=== PATIENT | female | born 1990 | race Caucasian/White ===

== ENCOUNTER → 2019-04-25 20:44 | Outpatient (CLI) | payer BC, SELFPAY | PROVIDERS: Family Provider Physician Assistant Medical; PCP Physician Assistant Medical; Visit Provider Physician Assistant | DX: L98.499 Non-pressure chronic ulcer of skin of other sites with unspecified severity (principal) | CPT/HCPCS: 87070; 87075; 87205 ==

== ENCOUNTER → 2019-04-26 15:01 | Outpatient (CLI) | payer BC, SELFPAY ==
[2019-04-26 16:58] LABS: Urine N gonorrhoeae NOT DETECTED
[2019-04-26 17:58] LABS: Urine Chlamydia NOT DETECTED
[2019-04-29 13:24] LABS: HSV 1 IgM Screen Negative (Negative); HSV 2 IgM Screen Negative (Negative)
[2019-04-29 20:16] LABS: RPR Screen Nonreactive (Nonreactive)
== END ==
PROVIDERS: Visit Provider Physician Assistant
DX: L98.499 Non-pressure chronic ulcer of skin of other sites with unspecified severity (principal)
CPT/HCPCS: 36415; 86592; 86695; 86696; 87491; 87591

== ENCOUNTER → 2019-05-01 13:45 | Outpatient (CLI) | payer BC, SELFPAY | PROVIDERS: Visit Provider Family Medicine | DX: S31.109A Unspecified open wound of abdominal wall, unspecified quadrant without penetration into peritoneal cavity, initial encounter (principal); L08.1 Erythrasma | CPT/HCPCS: 99203; 99213 ==

== ENCOUNTER → 2019-05-05 15:16 | Outpatient (CLI) | payer BC, SELFPAY | PROVIDERS: Visit Provider Family Medicine | DX: S31.109A Unspecified open wound of abdominal wall, unspecified quadrant without penetration into peritoneal cavity, initial encounter (principal); L08.1 Erythrasma | CPT/HCPCS: 99213 ==

== ENCOUNTER → 2020-05-16 12:22 | Outpatient (CLI) | payer BC, SELFPAY ==
[2020-05-18 12:18] LABS: COVID19 Sendout Not Detected (Not Detected)
== END ==
PROVIDERS: Visit Provider Physician Assistant
DX: J02.9 Acute pharyngitis, unspecified (principal)
CPT/HCPCS: 87070; 87635

== ENCOUNTER → 2020-06-13 17:14 | Outpatient (CLI) | payer BC, SELFPAY ==
[2020-06-18 20:36] LABS: AFP, Serum 51.5 ng/mL (.); Calc Gestational Age As provided (.); Estriol, Free 3.22 ng/mL (.); Inhibin A, Dimeric 167.35 pg/mL (.); Inhibin A, MoM 1.01 (.); Maternal Ethnicity Caucasian (.); Maternal Weight 210 lbs (.); Number of Fetuses No (.); OSBR Risk 1 IN 9231 (.); Results Report (.); Test Results *Screen Negative* (.); hCG, MoM 1.91 (.); hCG, Serum 37575 mIU/mL (.)
== END ==
PROVIDERS: Referring Provider Obstetrics & Gynecology; Visit Provider Obstetrics & Gynecology
DX: Z34.00 Encounter for supervision of normal first pregnancy, unspecified trimester (principal); Z3A.20 20 weeks gestation of pregnancy
CPT/HCPCS: 36415; 82105; 82677; 84702; 86336

== ENCOUNTER → 2020-06-15 07:39 | Outpatient (CLI) | payer BC, SELFPAY ==
--- NOTE | 2020-06-15 07:40 | DI.US.S_ITS ---
PROCEDURE: US OB >= 14 WEEKS FETUS INDICATIONS: Evaluate anatomy. OUTSIDE/PRIOR DATING DATA: Last menstrual period (LMP): 01/23/2020 . LMP-based estimated date of delivery (SHARON): 10/29/2020 . First dating scan (date and location): 06/15/2020 . Estimated date of delivery (SHARON) from first dating scan: 11/04/2020 . TECHNIQUE: Real-time scanning was performed of the fetus, with image documentation and biometric measurements. Endovaginal scanning: No COMPARISON: None. FINDINGS: General: A single living intrauterine gestation is present. Presentation: Breech. Placenta: Placental position is anterior , without previa. Amniotic fluid index: 14.1 cm, normal range is 5-24 cm. heart rate: 141 beats per minute. Maternal cervical canal: 3.2 cm long. Normal lower limit is 2.5 cm. biometrics: Biparietal diameter: 19 weeks 6 days Head circumference: 19 weeks 6 days Abdominal circumference: 19 weeks 6 days Femur length: 19 weeks 1 day Estimated gestational age from initial scan: not applicable. Composite gestational age from present scan: 19 weeks 5 days Estimated weight and percentile: 301 g; 7 percentile Measurement variability for biometric dating: +/- 7 days from 14 weeks to 15 weeks 6 days gestation, +/- 10 days from 16 weeks to 21 weeks 6 days gestation, +/- 2 weeks from 22 weeks to 27 weeks 6 days gestation, +/- 3 weeks for 28 weeks gestation or later. weight reference: 4500 g or EFW >90/95% is considered macrosomia or large for gestational age. EFW <10% is small for gestational age. EFW 5% or less is considered intra-uterine growth restriction. Anatomic survey: Neuro: Ventricles are non-dilated at less than 10 mm. Cisterna magna is normal at 3-11 mm. Cerebellum is normal in size and morphology. Nuchal skin fold: Normal at less than 6 mm between 14-21 weeks gestational age. Face: Nose and lips, facial profile are normal. Spine: No evidence for spina bifida. Heart: 4-chambered heart is present, with normal ventricular outflow tracts. Diaphragm: Diaphragm is intact. Stomach: Left-sided stomach is present. Kidneys: No hydronephrosis. Normal is less than 5 mm in 2nd trimester, less than 7 mm in 3rd trimester. Cord: 3-vessel cord has orthotopic insertion. Bladder: Normal in size. Extremities: All 4 extremities identified. IMPRESSION: 1. Single living IUP with mean composite gestational age of 19 weeks 5 days corresponding to ultrasound SHARON of 11/04/2020. 2. Normal anatomic survey. Dictated by: Abhishek Charles [facility] Interpreted: Bronwyn Romo MD on 06/15/2020 at 9:33 Approved by: Bronwyn Romo MD, PhD on 06/15/2020 at 13:02
== END ==
PROVIDERS: Referring Provider Obstetrics & Gynecology; Visit Provider Obstetrics & Gynecology
DX: Z36.89 Encounter for other specified antenatal screening (principal); Z3A.19 19 weeks gestation of pregnancy
CPT/HCPCS: 76811

== ENCOUNTER → 2020-08-02 12:27 | Outpatient (CLI) | payer BC, SELFPAY ==
[2020-08-02 14:02] LABS: Hematocrit 31.7 % (36-46)
[2020-08-02 14:12] LABS: GTT (PREG) 1 Hour PP 50gm Dose 90 mg/dL (76-139)
== END ==
PROVIDERS: Referring Provider Obstetrics & Gynecology; Visit Provider Obstetrics & Gynecology
DX: Z34.82 Encounter for supervision of other normal pregnancy, second trimester (principal); Z3A.26 26 weeks gestation of pregnancy
CPT/HCPCS: 36415; 82950; 85014; 85018

== ENCOUNTER 2020-09-15 17:17 | Observation (INO) | payer BC, SELFPAY ==
[2020-09-15 17:57] LABS: Add Manual Diff / Slide Review NO; Basophils Absolute Auto 0 /uL (0-100); Basophils Percent Auto 0.3 % (0-2); Eosinophils Absolute Auto 100 /uL (0-450); Eosinophils Percent Auto 1.1 % (2-4); Hematocrit 29.3 % (36-46); Hemoglobin 9.9 g/dL (12.0-16.0); Lymphocytes Absolute Auto 1500 /uL (1100-4500); Lymphocytes Percent Auto 13.8 % (25-40); Mean Corpuscular HGB Conc 33.8 % (30-36); Mean Corpuscular Hemoglobin 27.5 PG (26-34); Mean Corpuscular Volume 81.4 fL (80-100); Monocytes Absolute Auto 600 /uL (0-900); Monocytes Percent Auto 5.7 % (3-14); Neutrophils Absolute Auto 8600 /uL (1500-7000); Neutrophils Percent Auto 79.1 % (50-75); Platelet Count 195 X10^3/uL (150-400); Red Cell Distribution Width 13.2 % (11.6-14.8); White Blood Cell Count 10.8 X10^3/uL (4.5-11.0)
[2020-09-15 18:13] LABS: Aspartate Aminotransferase 17 IU/L (14-36); BUN Creatinine Ratio 18.4 (6-22); Blood Urea Nitrogen 7 mg/dL (7-17); Estimated Glomerular Filt Rate > 60.0 mL/min (>60); Uric Acid 4.8 mg/dL (2.5-6.2)
== END 2020-09-15 18:30 | disposition home or self-care (01) ==
PROVIDERS: Admitting Provider Obstetrics & Gynecology; PCP Obstetrics & Gynecology; Referring Provider Obstetrics & Gynecology; Visit Provider Obstetrics & Gynecology
DX: O12.03 Gestational edema, third trimester (principal); R51.9 Headache, unspecified; H53.9 Unspecified visual disturbance; Z3A.32 32 weeks gestation of pregnancy
CPT/HCPCS: 36415; 59025; 84450; 84550; 85025; G0378; G0379

== ENCOUNTER → 2020-10-05 15:40 | Outpatient (CLI) | payer BC, SELFPAY ==
[2020-10-06 11:39] LABS: Strep Grp B PCR NEG for Grp B Strep
== END ==
PROVIDERS: Visit Provider Obstetrics & Gynecology
DX: Z34.83 Encounter for supervision of other normal pregnancy, third trimester (principal); Z3A.35 35 weeks gestation of pregnancy
CPT/HCPCS: 87653

== ENCOUNTER 2020-10-14 17:09 | Outpatient (CLI) | payer BC, SELFPAY | END 2020-10-14 18:45 | disposition home or self-care (01) | LOC: LABOR 17:21 → OB 10-17 10:35 | PROVIDERS: Referring Provider Obstetrics & Gynecology; Visit Provider Obstetrics & Gynecology | DX: O47.03 False labor before 37 completed weeks of gestation, third trimester (principal); N89.8 Other specified noninflammatory disorders of vagina; Z3A.36 36 weeks gestation of pregnancy | CPT/HCPCS: 59025; G0378; G0379 ==

== ENCOUNTER 2020-10-28 15:15 | Outpatient (CLI) | payer BC, SELFPAY | END 2020-10-28 16:09 | disposition home or self-care (01) | LOC: LABOR 15:31 → OB 10-31 10:44 | PROVIDERS: Referring Provider Obstetrics & Gynecology; Visit Provider Obstetrics & Gynecology | DX: Z34.83 Encounter for supervision of other normal pregnancy, third trimester (principal); Z3A.38 38 weeks gestation of pregnancy | CPT/HCPCS: 59025; 84112; G0378; G0379 ==

== ENCOUNTER 2020-11-06 06:34 | Inpatient (IN) | payer BC, SELFPAY ==
[2020-11-06] MEDS: LACTATED RINGERS 1,000 ML 100 ML IV ×3 (09:20→23:06)
[2020-11-06 09:31] VITALS: BP 134/79
[2020-11-06 10:10] LABS: Add Manual Diff / Slide Review NO; Basophils Absolute Auto 100 /uL (0-100); Basophils Percent Auto 0.5 % (0-2); Eosinophils Absolute Auto 100 /uL (0-450); Eosinophils Percent Auto 0.5 % (2-4); Hematocrit 31.3 % (36-46); Hemoglobin 10.3 g/dL (12.0-16.0); Lymphocytes Absolute Auto 1200 /uL (1100-4500); Lymphocytes Percent Auto 9.9 % (25-40); Mean Corpuscular HGB Conc 32.8 % (30-36); Mean Corpuscular Hemoglobin 24.8 PG (26-34); Mean Corpuscular Volume 75.5 fL (80-100); Monocytes Absolute Auto 600 /uL (0-900); Monocytes Percent Auto 5.1 % (3-14); Neutrophils Absolute Auto 10500 /uL (1500-7000); Platelet Count 228 X10^3/uL (150-400); Red Blood Cell Count 4.15 X10^6/uL (4.0-5.2); White Blood Cell Count 12.5 X10^3/uL (4.5-11.0)
[2020-11-06 10:58] LABS: COVID19 -Nasal RAPID Negative (Negative)
--- NOTE | 2020-11-06 11:40 | P.HPOB_ITS ---
OB HPI Date/Time Date of admission: 11/06/20 Date Patient Seen: 11/06/20 Time Patient Seen: 11:41 History of Present Condition Chief complaint: eval of labor : 2 Para: 0 Estimated Date of Delivery: 11/07/20 Estimated Gestational Age (weeks): 39 Narrative: Catalina Rowland is a 30 year old @39+6 admitted in active labor. The patient reports that she began having contractions overnight with scant mucousy bleeding, presented to L&D at 1cm, and made change to 4cm on her interval check. She reports otherwise feeling well with no VB, LOF, or decreased movement, and has no other complaints today. 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 She reports a history of mild asthma but no other contributory medical, surgical, or family history. She transferred care midway through the 2nd trimester from [facility] in [place]. History of Present Dating criteria: based on 1st trimester US only (conceived shortly after stop ping depo) Ultrasounds: normal mid trimester US Obstetrical complications: none Medical complications: none Preadmission Labs Blood type: O (+) positive -: Antibody screen: negative, GBS status: negative, HBsAG: negative, HIV: negative and RPR/VDLR: negative -: Chlamydia screen: not detected and Gonorrhea screen: not detected -: Rubella: immune and Varicella: immune Quad screen: Normal Urine: not indicated 1 hr GTT: 90 Prior (ies) History: G1: 11/11/08, elective Evaluation Evaluation Baseline heart rate: 150 Variability: Moderate (11-25) monitor accelerations: Present (+scalp stim) monitor decelerations: Early (occ. variables) Contraction Frequency (minutes): 3 Category of Tracing: Reactive Status: Category ll Cervical dilation (cm): 9 Cervical effacement (%): 100 station: -1 Laboratory results: Laboratory Tests 11/06/20 11/06/20 11/06/20 09:50 09:50 10:30 WBC 12.5 H RBC 4.15 Hgb 10.3 L Hct 31.3 L MCV 75.5 L MCH 24.8 L MCHC 32.8 RDW 15.0 H Plt Count 228 Neut % (Auto) 84.0 H Lymph % (Auto) 9.9 L [place] % (Auto) 5.1 Eos % (Auto) 0.5 L Baso % (Auto) 0.5 Neut # (Auto) 50783 H Lymph # (Auto) 1200 [place] # (Auto) 600 Eos # (Auto) 100 Baso # (Auto) 100 COVID-19 PCR Negative Blood Type O Positive Antibody Screen Negative Comments: s/p epidural, AROM for clear fluid with mild bloody show PFSH Medical History Allergies (~1995) Anal fissure Ankle pain (~2012) Anxiety Asthma (~1995) Depression Eczema GERD (gastroesophageal reflux disease) (~2017) HSV-1 (herpes simplex virus 1) infection Insomnia Migraine headache (~2003) Sinusitis Surgical History History of colonoscopy History of elective [place] teeth extracted Family History Mother Psychiatric care Asthma Bipolar disorder Father Arthritis Hypertension Brother Drug abuse Sister Asthma Bipolar disorder Grandfather Myocardial infarction Grandfather Myocardial infarction Grandmother Bipolar disorder Dementia Stroke Grandmother Hypertension History of heart disease Hyperlipidemia Stroke Social History marital status: household members: spouse pets and animals: Yes (Cat) education level: high school occupational status: employed ([employer]) special edi needs: No seatbelt use: always Smoking Status: Never smoker second hand exposure: No alcohol intake: never substance use type: does not use caffeine: Yes (1 daily) Type(s) of exercise: additional (Cardio) frequency: 1-2 times per week Meds Home Medications and Allergies Home Medications Medication Instructions Recorded Confirmed Type azithromycin 250 mg tablet See Rx Instructions PO .COMPLEX #6 05/19/20 11/02/20 Rx tab prenat.vits,taryn,[id number] 1 tab PO DAILY 06/13/20 11/02/20 History albuterol sulfate 90 mcg/actuation 2 puff INHALATION Q4H PRN gram 06/14/20 11/02/20 History aerosol inhaler epinephrine 0.3 mg/0.3 mL 0.3 mg IM ONCE PRN 06/14/20 11/02/20 History injection, auto-injector valacyclovir 1 gram tablet 2,000 mg PO BID tab 06/14/20 11/02/20 History Double Electric breast Pump and #1 each 07/08/20 11/02/20 Rx Supplies Allergies Allergy/AdvReac Type Severity Reaction Status Date / Time alcohol Allergy Unknown RASH FROM Verified 11/02/20 16:35 RUBBING ALCOHOL amoxicillin Allergy Unknown HIVES Verified 11/02/20 16:35 ciprofloxacin Allergy Unknown drops very Verified 11/02/20 16:35 painful, burned eye latex Allergy Unknown HIVES Verified 11/02/20 16:35 sulfamethoxazole Allergy Verified 11/02/20 16:35 [From Bactrim] trimethoprim [From Bactrim] Allergy Verified 11/02/20 16:35 Peanuts Allergy Uncoded 11/02/20 16:35 Review of Systems Constitutional Constitutional: Reports system reviewed and no additional complaints, except as documented Cardiovascular Cardiovascular: Reports system reviewed and no additional complaints, except as documented Respiratory Respiratory: Reports system reviewed and no additional complaints, except as documented Gastrointestinal Gastrointestinal: Reports system reviewed and no additional complaints, except as documented Genitourinary Genitourinary: Reports system reviewed and no additional complaints, except as documented Neurologic Neurologic: Reports system reviewed and no additional complaints, except as documented Exam Vital Signs (past 8 hours): - 11/06/20 09:31 Blood Pressure 134/79 Const Other: resting in bed, comfortable, mild pressure intermittently GI Palpation: soft External Female Exam: normal external appearance Skin General: no rashes or lesions noted Extrem General: normal to inspection Objective Labs Result Diagrams: 11/06/20 09:50 Labs: Laboratory Results - last 24 hr 11/06/20 11/06/20 11/06/20 09:50 09:50 10:30 WBC 12.5 H RBC 4.15 Hgb 10.3 L Hct 31.3 L MCV 75.5 L MCH 24.8 L MCHC 32.8 RDW 15.0 H Plt Count 228 Neut % (Auto) 84.0 H Lymph % (Auto) 9.9 L [place] % (Auto) 5.1 Eos % (Auto) 0.5 L Baso % (Auto) 0.5 Neut # (Auto) 01152 H Lymph # (Auto) 1200 [place] # (Auto) 600 Eos # (Auto) 100 Baso # (Auto) 100 COVID-19 PCR Negative Blood Type O Positive Antibody Screen Negative Assessment and Plan Assessment and Plan Assessment and Plan narrative: This patient was admitted in active labor and is making fairly rapid change. EFW 8#8-9# per recent office visit exam. Anticipate . - epidural in place - cEFM, toco
--- NOTE | 2020-11-06 12:48 | PM.OBPNLAB ---
Date/Time Date Patient Seen: 11/06/20 Time Patient Seen: 12:48 Pain Control Pain control: epidural Pelvic Exam Dilation (cm): 9 Effacement (%): 100 station: 0 Amniotic membrane status: Ruptured (clear) Contractions Contraction frequency (min): 4 Status status: Category ll Heart Rate Baseline: 155 Monitor Accelerations: Present (+scalp stim) Monitor Decelerations: Variable Comments: anterior/left lip, 9.5cm Assessment and Plan Plan: continuous present management Comments: cat 2 with reassuring features, descent, +scalp stim. COnservative measures including bolus and repositioning, recheck in 30 minutes for dilation.
[2020-11-06 13:29] VITALS: BP 120/62
--- NOTE | 2020-11-06 14:41 | PM.OBPNLAB ---
Date/Time Date Patient Seen: 11/06/20 Time Patient Seen: 14:41 Pain Control Pain control: epidural Pelvic Exam Dilation (cm): 10 Effacement (%): 100 station: +1 Amniotic membrane status: Ruptured (clear) Contractions Contraction frequency (min): 3 Status status: Category ll Heart Rate Baseline: 165 Monitor Accelerations: Absent Monitor Decelerations: Variable Monitor Variability: Minimal Comments: +scalp stim Assessment and Plan Comments: Patient pushing with good effort, will reposition, start fluid bolus, administer oxygen, continue to closely monitor for progress in second stage and status. Patient encouraged to push, pushing adequately.
[2020-11-06] MEDS: LACTATED RINGERS 1,000 ML 125 ML IV (15:35)
[2020-11-06] MEDS: FENT 2MCG/ML BUPIV 0.125% EPI 200 MCG/100 ML PLAST..BAG 14 MCG EPIDURAL (15:58)
--- NOTE | 2020-11-06 16:48 | PM.OBPNLAB ---
Date/Time Date Patient Seen: 11/06/20 Time Patient Seen: 16:48 Pelvic Exam Dilation (cm): 10 Effacement (%): 100 station: +2 Amniotic membrane status: Ruptured (clear) Contractions Contraction frequency (min): 3 Status status: Category ll Heart Rate Baseline: 155 Monitor Accelerations: Absent Monitor Decelerations: Variable Monitor Variability: Minimal Assessment and Plan Plan: Comments: This patient presented in active labor, and made spontaneous progress to fully dilated. After a 3 hour second stage, the patient was noted to have made progress to 3+ station during pushes with good pushing effort, but the vertex retracted to 1-2+ station between pushes, with increasing concern for cephalopelvic disproportion given the EFW of 9#. The heart rate tracing had been noted to have reassuring features previously such as scalp stim and moderate variability, but lost these with ongoing pushing and expedited delivery was thought to be necessary. Given the overall clinical picture, vacuum assisted delivery was thought to have an unacceptably high risk of shoulder dystocia, and the patient was counselled on the risks of ongoing pushing vs primary section. We discussed risk of hemorrhage, damage to surrounding organs, and infection, and discussed the risks to future pregnancies of abnormal placentation and uterine rupture. We compared and contrasted these to the risks of ongoing pushing vs instrumented delivery, and the patient and her partner vocalized understanding. The heart rate tracing recovered when pushing was abandoned, though the vertex was noted to then remain at 2+ station, and c section was expedited urgently but not emergently.
[2020-11-06] MEDS: AZITHROMYCIN 500 MG in DEXTROSE 5% IN WATER 250 ML IV (17:38)
[2020-11-06] MEDS: CEFAZOLIN 2 GM/100 ML FROZ.PIGGY IV (17:48)
--- NOTE | 2020-11-06 18:18 | SUR.OPER ---
Supine on Padded OR bed, head on pillow, safety belt at thigh, arms secured on padded arm boards at <90 degrees abduction. Bump under right buttock. Legs uncrossed with pillow under knees, gel pad to heels, tape over blanket to lower legs.
--- NOTE | 2020-11-06 18:19 | SUR.OPER ---
Viable female delivered at 1805. Cord blood and placenta sent with L&D nurse.
[2020-11-06 19:11] VITALS: BP 112/79; PULSE 106; RESP 26; TEMP 36.3; O2SAT 99
[2020-11-06 19:16] VITALS: BP 116/63; PULSE 97; RESP 18; O2SAT 100
--- NOTE | 2020-11-06 19:16 | PM.OP.1 ---
Operative Date/Time/Diagnoses Date of procedure: 11/06/20 Time of procedure: 17:30 Pre-op diagnosis: cephalopelvic disproportion Post-op diagnosis: same Procedure & Clinicians Procedure: primary section Same procedure as scheduled: Yes Indications: prolonged second stage, cat 2 EFM Surgeon: Mariola Bowen Warehouse Distribution Manager: Praveena Bradley Anesthesia Type: Spinal Operative Notes Findings: Normal uterus, tubes, ovaries. Female in KOFI presentation, no nuchal cord, 9#5, apgars 8+9 Closure Type: primary Specimen(s): none sent Applied: catheter Estimated Blood Loss (mL): 750 Procedure in detail: Fluids: 1700ccs LR EBL:750ccs UOP: 100ccs red urine, patient had montano red urine at beginning of procedure. Procedures: The patient was taken to the operating room where, as her epidural was not providing pain control after a bolus, spinal anesthesia was placed and found to be adequate. She was prepped and draped in the normal sterile fashion with betadine at patient request due to her allergies,in the dorsal supine position with a leftward tilt. A betadine vaginal prep was performed. A Pfannenstiel skin incision was made with a scalpel and carried through to the underlying layer of fascia. The fascia was incised in the midline and the incision extended laterally with Baltazar scissors. The superior aspect of this incision was grasped with Holley clamps, elevated, and the underlying rectus muscles dissected off bluntly and with the curved Baltazar scissors. Attention was then turned to the inferior aspect of this incision which, in a similar fashion, was grasped, tented up with the Holley clamps, and the rectus muscles dissected off bluntly and with the curved Baltazar scissors. The rectus muscles were then in the midline, and the peritoneum identified, tented up, and entered sharply with Metzenbaum scissors. The peritoneal incision was extended superiorly and inferiorly with good visualization of the bladder. The bladder blade was inserted and the vesicouterine peritoneum identified, grasped with pickups, and entered sharply with the Metzenbaum scissors. This incision was extended laterally, and the bladder flap created digitally. The bladder blade was then reinserted and the lower uterine segment incised in transverse fashion with the scalpel. The uterine incision was bluntly extended laterally. The bladder blade was removed, and the infant's head delivered atraumatically. After 30 seconds of delayed cord clamping, the cord was clamped and cut. The nose and mouth were suctioned as needed with a bulb syringe, and the infant was handed off to awaiting pediatricians. The placenta was then removed manually, and the uterus was exteriorized and cleared of all clots and debris. The uterine incision was repaired with 1-0 chromic in a running, locked fashion and a 2nd layer of the same suture was used to obtain excellent hemostasis. The right apex of the uterine incision had extended 1.5cm caudally and laterally, but not into the broad ligament or vagina. The uterus was returned to the abdomen, and the gutters were cleared of all clots and debris. The bladder flap was closed with 2-0 Vicryl in a running fashion, the peritoneum was closed with 3-0 Vicryl, and the fascia reapproximated with 0 Vicryl in a running fashion. The subcutaneous layer was placed with 3 0 Vicryl in an interrupted fashion and the skin was closed with 4-0 biosyn in a running fashion. The patient tolerated the procedure well sponge lap and needle counts were correct x2. 2 g of Ancef and 500mg Azithromycin were given at commencement of the case. The patient was taken to the recovery room in stable condition. Dr. Bradley was present throughout the case, and her assistance was essential for retraction and exposure as well as achieving delivery of the fetus. Complications: none Post-operative Condition: stable Disposition: PACU Plan for aftercare: Routine postop care
[2020-11-06 19:21] VITALS: BP 118/74; PULSE 101; RESP 12; TEMP 36.4; O2SAT 98
[2020-11-06 19:26] VITALS: BP 121/65; PULSE 97; RESP 22; O2SAT 100
--- NOTE | 2020-11-06 19:36 | SUR.PHASEI ---
Pt transferred to center in stable condition, vss. pt talking to RN and significant at bedside upon arrival. Bedside report given to GARRISON Kuhn upon arrival to room. No change in pt condition at time of arrival to center. Transferred care of pt to GARRISON Kuhn at that time.
[2020-11-07] MEDS: KETOROLAC 30 MG/ML VIAL IV ×3 (01:09→13:36)
[2020-11-07] MEDS: ACETAMINOPHEN 325 MG TABLET 650 MG PO ×3 (03:21→18:31)
[2020-11-07 05:33] LABS: Add Manual Diff / Slide Review NO; Basophils Absolute Auto 0 /uL (0-100); Basophils Percent Auto 0.1 % (0-2); Eosinophils Absolute Auto 0 /uL (0-450); Hematocrit 24.1 % (36-46); Hemoglobin 7.7 g/dL (12.0-16.0); Lymphocytes Absolute Auto 1100 /uL (1100-4500); Lymphocytes Percent Auto 7.4 % (25-40); Mean Corpuscular Hemoglobin 24.3 PG (26-34); Mean Corpuscular Volume 75.8 fL (80-100); Monocytes Absolute Auto 700 /uL (0-900); Neutrophils Absolute Auto 12800 /uL (1500-7000); Neutrophils Percent Auto 87.5 % (50-75); Platelet Count 178 X10^3/uL (150-400); Red Blood Cell Count 3.18 X10^6/uL (4.0-5.2); Red Cell Distribution Width 15.3 % (11.6-14.8); White Blood Cell Count 14.6 X10^3/uL (4.5-11.0)
[2020-11-07 07:33] VITALS: TEMP 36.3
--- NOTE | 2020-11-07 09:29 | P.PNOB_ITS ---
Subjective - OB Subjective Patient comments: pain well controlled and tolerating diet Elora baby status: doing well Elora feeding status: exclusively breast feeding Narrative: This patient is a 30-year-old now para 1 postop day 1 status post primary section for arrest of descent in the 2nd stage complicated by category 2 heart rate tracing. This morning, mom and baby are both doing well. The patient has voided, ambulated, showered, and tolerated p.o., though she has not yet passed flatus. Lochia is mild to moderate. Pain control is good. Date Patient Seen: 11/07/20 Time Patient Seen: 09:30 Exam Vital Signs (past 8 hours): -97/62, HR 111 11/07/20 07:33 Temperature 97.4 F L Oxygen Delivery Method Room Air Narrative Exam Narrative: Patient resting in bed, well-appearing, nursing baby Const General: cooperative, healthy appearing and comfortable Resp Effort & Inspection: normal respiratory effort Auscultation: clear to auscultation bilaterally Cardio Rate: regular rate Rhythm: regular rhythm GI Inspection: incision (c/d/i) Palpation: soft and No tender Other: Fundus firm, below U Extrem General: normal to inspection Objective Labs Result Diagrams: 11/07/20 05:05 Labs: Laboratory Results - last 24 hr 11/06/20 11/06/20 11/06/20 09:50 09:50 10:30 WBC 12.5 H RBC 4.15 Hgb 10.3 L Hct 31.3 L MCV 75.5 L MCH 24.8 L MCHC 32.8 RDW 15.0 H Plt Count 228 Neut % (Auto) 84.0 H Lymph % (Auto) 9.9 L [place] % (Auto) 5.1 Eos % (Auto) 0.5 L Baso % (Auto) 0.5 Neut # (Auto) 03768 H Lymph # (Auto) 1200 [place] # (Auto) 600 Eos # (Auto) 100 Baso # (Auto) 100 COVID-19 PCR Negative Blood Type O Positive Antibody Screen Negative 11/07/20 05:05 WBC 14.6 H RBC 3.18 L Hgb 7.7 L Hct 24.1 L MCV 75.8 L MCH 24.3 L MCHC 32.0 RDW 15.3 H Plt Count 178 Neut % (Auto) 87.5 H Lymph % (Auto) 7.4 L [place] % (Auto) 5.0 Eos % (Auto) 0.0 L Baso % (Auto) 0.1 Neut # (Auto) 50042 H Lymph # (Auto) 1100 [place] # (Auto) 700 Eos # (Auto) 0 Baso # (Auto) 0 COVID-19 PCR Blood Type Antibody Screen Assessment & Plan Plan day: 1 plan OB: routine postop care Comments: This patient is recovering well status post primary section. Patient encouraged to ambulate, SCDs in place while patient in bed. Routine postoperative care. Patient to start iron once passing flatus. Time Spent With Patient Time: Total time spent is greater than 50% in coordination of care (as documented) at patient's floor/unit and/or counseling patient: Time with patient: 15-24 minutes
[2020-11-07] MEDS: IBUPROFEN 600 MG TABLET PO (19:43)
[2020-11-08] MEDS: ACETAMINOPHEN 325 MG TABLET 650 MG PO ×3 (00:25→13:59)
[2020-11-08] MEDS: IBUPROFEN 600 MG TABLET PO ×2 (03:22→09:19)
--- NOTE | 2020-11-08 08:01 | P.DS_ITS ---
Discharge Providers Provider Date of admission: 11/06/20 09:23 Discharge Date: 11/08/20 Primary care physician: Doctor Madiha MD Consults: 11/06/20 19:49 Consult to Continuous Improvement Director Routine Comment: Discharge provider: Mariola Bowen MD Summary Hospital Course Date Patient Seen: 11/08/20 Time Patient Seen: 07:50 Procedures: Primary section Hospital Course: This patient is a 30-year-old now para 1 admitted in active labor. The patient had a second-stage arrest complicated by category 2 heart rate tracing, was taken for primary section. She was delivered of a healthy baby girl, weight 9 lb 5 oz, Apgars 8 and 9. The section was uncomplicated and her recovery was uneventful, and she was discharged on postop day 2 with routine precautions. Peripartum Data Delivery Method: Section complications: none 1: Gender: Female Disposition of : home Discharge Diagnosis (1) Delivery by section: Status: Acute Status at Discharge Cognitive/behavioral status at discharge: oriented Functional status at discharge: independent ambulation Overall status at discharge: patient is progressing back to baseline Time Spent with Patient Time attestation: Total time spent providing and/or coordinating discharge services: Time spent: Less than 30 minutes Objective Labs Result Diagrams: 11/07/20 05:05 Exam Vital Signs (past 8 hours): 127/66, HR 109 Oxygen Delivery Method Room Air Narrative Exam Narrative: Sitting in bed. Reports ambulating, passing flatus, voiding, tolerating p.o., mild to moderate lochia, no headaches or visual changes, no leg pain, no trouble breathing, no other complaints. Const General: cooperative, healthy appearing, comfortable and acute distress Resp Effort & Inspection: normal respiratory effort Auscultation: clear to auscultation bilaterally Cardio Rate: regular rate Rhythm: regular rhythm GI Palpation: soft and No tender Extrem General: normal to inspection Discharge Plan Discharge Plan Patient Disposition: Home Discharge orders & Medications Prescriptions: New oxycodone 5 mg tablet 5 mg PO Q6H PRN (Reason: pain) Qty: 14 RF: 0 ferrous gluconate 324 mg (37.5 mg iron) tablet 324 mg PO TID Qty: 60 RF: 2 Continued azithromycin 250 mg tablet See Rx Instructions PO .COMPLEX Qty: 6 RF: 0 (DME) Double Electric breast Pump and Supplies See Rx Instructions .ROUTE .MEDSUPPLY Qty: 1 RF: 0 prenat.vits,taryn,[id number] Tablet 1 tab PO DAILY RF: 0 albuterol sulfate [Ventolin HFA] 90 mcg/actuation HFA aerosol inhaler 2 puff INHALATION Q4H PRN (Reason: Congestion) RF: 0 epinephrine [EpiPen] 0.3 mg/0.3 mL auto-injector 0.3 mg IM ONCE PRN (Reason: Allergic Reaction) RF: 0 valacyclovir [Valtrex] 1 gram tablet 2,000 mg PO BID RF: 0 Follow up/Referrals: Doctor Cleary MD [Primary Care Provider] - Valentina Guzman MD [Physician] - 1 Week (incision check) Diet/Activity/Treatments Diet: Regular Activity: Nothing in the vagina for 6 weeks. No lifting more than 10 lb for 6 weeks. If you have increased bleeding, fevers, chills, nausea, vomiting, headaches, or any other concerns or symptoms, call the clinic number or come to the emergency room. Skin/Wound/Dressing Care Report to your healthcare provider any signs of infection, such as:: chills, fever, night sweats, increased pain, unusual drainage and unusual redness Visit Report/Discharge Packet Instructions: DI for Discharge Data Primary Care Provider: Doctor Madiha
[2020-11-08 09:08] VITALS: BP 119/70; PULSE 99; RESP 20; TEMP 36.2
[2020-11-08 09:19] VITALS: TEMP 36.2
== END 2020-11-08 14:50 | disposition home or self-care (01) | DRG 787 ==
PROVIDERS: Obstetrics & Gynecology; Admitting Provider Specialist; Referring Provider Specialist; Visit Provider Specialist
PROC: 10D00Z1 Extraction of Products of Conception, Low, Open Approach (ICD-10-PCS; CPT 59514; principal; 2020-11-06 17:30)
DX: O62.1 Secondary uterine inertia (principal); D62 Acute posthemorrhagic anemia; O65.4 Obstructed labor due to fetopelvic disproportion, unspecified; O76 Abnormality in fetal heart rate and rhythm complicating labor and delivery; Z3A.39 39 weeks gestation of pregnancy; Z37.0 Single live birth; Z20.828 Contact with and (suspected) exposure to other viral communicable diseases; O99.02 Anemia complicating childbirth
CPT/HCPCS: 01967; 01968; 36415; 59050; 59515; 85025; 86850; 86900; 86901; 87635; G0378; G0379; J0690; J1885; J2274; J2405; J2590; J2704

== ENCOUNTER → 2021-06-26 17:54 | Outpatient (CLI) | payer BC, SELFPAY ==
[2021-06-26 18:29] LABS: COVID19 -Nasal RAPID POSITIVE (Negative)
== END ==
PROVIDERS: Referring Provider Physician Assistant; Visit Provider Physician Assistant
DX: U07.1 COVID-19 (principal)
CPT/HCPCS: 87635

== ENCOUNTER 2021-09-08 19:18 | Emergency (ER) | payer BC, SELFPAY ==
[2021-09-08] VITALS (9 sets, daily range): BP systolic 117–138; BP diastolic 62–85; PULSE 81–115; RESP 21; TEMP 36.4; O2SAT 95–99; BMI 31.5
[2021-09-08] MEDS: SODIUM CHLORIDE 0.9% 1,000 ML 1000 ML IV (19:41)
[2021-09-08 19:45] LABS: Add Manual Diff / Slide Review NO; Basophils Absolute Auto 100 /uL (0-100); Basophils Percent Auto 1.3 % (0-2); Eosinophils Absolute Auto 300 /uL (0-450); Eosinophils Percent Auto 3.3 % (2-4); Hematocrit 40.3 % (36-46); Hemoglobin 13.7 g/dL (12.0-16.0); Lymphocytes Absolute Auto 2000 /uL (1100-4500); Lymphocytes Percent Auto 25.5 % (25-40); Mean Corpuscular HGB Conc 33.9 % (30-36); Mean Corpuscular Hemoglobin 26.7 PG (26-34); Mean Corpuscular Volume 78.9 fL (80-100); Monocytes Absolute Auto 500 /uL (0-900); Monocytes Percent Auto 6.1 % (3-14); Neutrophils Absolute Auto 5000 /uL (1500-7000); Neutrophils Percent Auto 63.8 % (50-75); Platelet Count 261 X10^3/uL (150-400); Red Blood Cell Count 5.11 X10^6/uL (4.0-5.2); Red Cell Distribution Width 14.1 % (11.6-14.8); White Blood Cell Count 7.8 X10^3/uL (4.5-11.0)
--- NOTE | 2021-09-08 20:11 | ED_ITS ---
HPI - General Chief complaint: OB/Uterine Contractions Stated complaint: Having a Miscarrige, Heavy Bleeding Time Seen by Provider: 09/08/21 19:31 Source: patient Mode of arrival: Ambulatory Limitations: no limitations History of Present Illness HPI Narrative: 31-year-old female who is AG 3p1 currently about 8 weeks 3 days is presenting with increasing bleeding. She actually was seen and evaluated by OB this morning. She had a small amount of spotting yesterday this morning she had a small clot but feels like bleeding has gotten heavier. She has had multiple has at least 2-3 an hour since 445 this afternoon. He is having intense abdominal cramping and a little bit of nausea. No dizziness or li ghtheadedness. Ultrasound this morning showed that there was intrauterine gestational sac not measured 0.85 x 0.59 x 7.3 cm. There is no pole. And no yolk sac. There was a small amount of old blood on the probe with was removed. Related Data Home Medications Medication Instructions Recorded Confirmed prenat.vits,taryn,[id number] 1 tab PO DAILY 06/13/20 09/08/21 albuterol sulfate 90 mcg/actuation 2 puff INHALATION Q4H PRN gram 06/14/20 09/08/21 aerosol inhaler (Ventolin HFA) epinephrine 0.3 mg/0.3 mL 0.3 mg IM ONCE PRN 06/14/20 09/08/21 injection, auto-injector (EpiPen) valacyclovir 1 gram tablet 2,000 mg PO BID tab 06/14/20 09/08/21 (Valtrex) Allergies Allergy/AdvReac Type Severity Reaction Status Date / Time alcohol Allergy Unknown RASH FROM Verified 09/08/21 09:15 RUBBING ALCOHOL amoxicillin Allergy Unknown HIVES Verified 09/08/21 09:15 ciprofloxacin Allergy Unknown drops very Verified 09/08/21 09:15 painful, burned eye latex Allergy Unknown HIVES Verified 09/08/21 09:15 sulfamethoxazole Allergy Verified 09/08/21 09:15 [From Bactrim] trimethoprim [From Bactrim] Allergy Verified 09/08/21 09:15 Peanuts Allergy Uncoded 09/08/21 09:15 Review of Systems Review of Systems Narrative: GENERAL: Denies chills, fatigue, malaise, fever, sweats, travel HEENT: Denies sinus pain, ear pain, sore throat, difficulty swallowing, neck pain RESPIRATORY: Denies dyspnea, cough, wheezing, hemoptysis, sputum. CARDIOVASCULAR: Denies chest pain, palpitations, orthopnea, edema GASTROINTESTINAL: Denies nausea, vomiting, abdominal pain, diarrhea, constipation, melena. : Denies dysuria, frequency, incontinence, hematuria, urinary retention, flank pain. 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 12 point review of systems is negative except for those stated above and HPI Exam Initial Vital Signs Initial Vital Signs: Vital Signs Temperature 97.5 F L 09/08/21 19:25 Pulse Rate 115 H 09/08/21 19:25 Respiratory Rate 21 09/08/21 19:25 Blood Pressure 138/85 09/08/21 19:25 Pulse Oximetry 97 09/08/21 19:25 GENERAL: Alert well-appearing 31-year-old femaleand in no acute distress. HEENT: Head atraumatic,EOMI, pupils reactive, face symmetric, moist mucous membranes CARDIOVASCULAR: Regular rate and rhythm without murmurs, rubs or gallops. RESPIRATORY: Breath sounds equal bilaterally, no wheezes rales or rhonchi. ABDOMEN: Soft, nontender. Normoactive bowel sounds all 4 quadrants. No guarding or rebound. PELVIC: External genitalia is normal, + vaginal bleeding ankle easily controlled no vaginal discharge, no odor, cervical os is open EXTREMITIES: Normal range of motion, no clubbing or edema. Neurovascularly intact NEUROLOGICAL: Alert and oriented x4.Normal gait and speech. SKIN: Warm, dry, no laceration, no petechiae, no rashes or lesions. Course Orders Ordered: ED Orders 09/08/21 19:30 Complete Blood Count AUTO DIFF Stat Comprehensive Metabolic Panel Stat HCG Quantitative /Beta subunit Stat Type and Screen Stat 09/08/21 22:56 US OB <= 14 weeks fetus Stat Discontinued Medications Sodium Chloride (Normal Saline 0.9%) 1,000 mls @ 1,000 mls/hr IV BOLUS ONE Stop: 09/08/21 20:30 Last Infusion: 09/08/21 21:16 Dose: 0 mls/hr Documented by: Admin: 09/08/21 19:41 Dose: 1,000 mls/hr Documented by: CLAU Ketorolac Tromethamine (Ketorolac 30 Mg/Ml Vial) 15 mg IV NOW ONE Stop: 09/08/21 20:13 Last Admin: 09/08/21 20:34 Dose: 15 mg Documented by: CLAU Ondansetron HCl (Ondansetron 4 Mg/2 Ml Inj) 4 mg IV NOW ONE Stop: 09/08/21 20:13 Last Admin: 09/08/21 20:34 Dose: 4 mg Documented by: CLAU Vital Signs Vital signs: Vital Signs - 8 hr 09/08/21 19:25 09/08/21 19:28 09/08/21 19:36 Temperature 97.5 F L Pulse Rate 115 H 111 H 95 H Respiratory Rate 21 Blood Pressure 138/85 138/85 Pulse Oximetry 97 97 97 09/08/21 20:00 09/08/21 20:30 09/08/21 22:58 Temperature Pulse Rate 99 H 99 H Respiratory Rate Blood Pressure Pulse Oximetry 98 99 98 09/08/21 22:59 09/08/21 23:00 09/08/21 23:30 Temperature Pulse Rate 81 88 92 H Respiratory Rate Blood Pressure 119/62 117/69 122/80 Pulse Oximetry 97 97 95 MDM - OB/Uterine Contractions Lab Data Result diagrams: 09/08/21 19:30 09/08/21 19:30 Labs: Lab Results 09/08/21 09/08/21 09/08/21 Range/Units 19:30 19:30 19:30 WBC 7.8 (4.5-11.0) X10^3/uL RBC 5.11 (4.0-5.2) X10^6/uL Hgb 13.7 (12.0-16.0) g/dL Hct 40.3 (36-46) % MCV 78.9 L (80-100) fL MCH 26.7 (26-34) PG MCHC 33.9 (30-36) % RDW 14.1 (11.6-14.8) % Plt Count 261 (150-400) X10^3/uL Neut % (Auto) 63.8 (50-75) % Lymph % (Auto) 25.5 (25-40) % [place] % (Auto) 6.1 (3-14) % Eos % (Auto) 3.3 (2-4) % Baso % (Auto) 1.3 (0-2) % Neut # (Auto) 5000 (0936-3080) /uL Lymph # (Auto) 2000 (2456-7208) /uL [place] # (Auto) 500 (0-900) /uL Eos # (Auto) 300 (0-450) /uL Baso # (Auto) 100 (0-100) /uL Sodium 142 (137-145) mmol/L Potassium 3.8 (3.4-5.1) mmol/L Chloride 105 (98-107) mmol/L Carbon Dioxide 27 (22-32) mmol/L BUN 9 (7-17) mg/dL Creatinine 0.70 (0.52-1.04) mg/dL Estimated GFR > 60.0 (>60) mL/min BUN/Creatinine Ratio 12.9 (6-22) Glucose 99 (70-100) mg/dL Calcium 10.4 H (8.4-10.2) mg/dL Total Bilirubin 0.6 (0.2-1.3) mg/dL AST 36 (14-36) IU/L ALT 26 (<35) IU/L Alkaline Phosphatase 79 (38-126) U/L Total Protein 7.7 (6.3-8.2) g/dL Albumin 4.6 (3.5-5.0) g/dL Globulin 3.1 (1.7-4.1) g/dL Albumin/Globulin Ratio 1.5 (1.0-2.8) HCG, Quant 2849.8 mIU/mL Blood Type O Positive Antibody Screen Negative Imaging Data US - OB: Radiologist's Impression: PROCEDURE:? US PELVIC COMPLETE ? INDICATIONS:? FOLLOW UP ULTRASOUND 09/08/21 AT [facility]. WORSENING BLEEDING. ? TECHNIQUE:? Real-time scanning was performed of the pelvic organs, with image documentation.? Additional endovaginal scanning was necessary due to incomplete visualization of the adnexal and endometrial structures by transabdominal scanning.? ? COMPARISON:? None. ? FINDINGS:? ?? Uterus:? Uterus is normal in size at 9.4 x 6.4 x 5.0 cm.? The endometrium holley sures 10 mm in combined thickness.? Complex fluid within the endometrial canal and cervix.? Nabothian cyst is present. ? Ovaries:? Not well seen bilaterally ? Other: ? No pathologic free abdominal or pelvic fluid. ? IMPRESSION:? No evidence of viable intrauterine gestation.? Continued clinical and sonographic follow-up is recommended to exclude underlying viable . ? Dictated by: Sylvia Reed M.D. on 09/08/2021 at 22:35 ? ? MDM Narrative Medical decision making narrative: The patient presents with vaginal bleeding in the trimeste, she has a confirmed IUP from ultrasound earlier today. HCG has decreased from 7920-5988 just today. She has had increasing bleeding. Patient is likely having a miscarriage. Ultrasound shows that she does not have any retained products. Initially she was slightly tachycardic but that improved with fluids and some pain control. At this time recommend patient follow-up nazia [place] next week. Discharge Plan Departure Patient Disposition: Home Clinical Impression: Miscarriage Instructions: DI for Miscarriage Activity Restrictions/Additional Instructions: *You have been diagnosed with miscarriage *What to do: Times so sorry for your loss. This is nothing that you did. Bleeding should start to slow down. He may continue to have some cramping. *Continue to take medications as directed Tylenol 1000 mg every 6 hours if needed for pain Motrin 800 mg every 8 hours if needed for pain *Follow up with your primary care provider in 2-[address] Guzman office on Saturday and schedule follow-up appointment *Return to ER if you should have increasing bleeding more than 3 pads in 1 hour, increasing pain, dizziness, lightheadedness, passing out or any new, worsening or concerning symptoms Prescriptions: No Action prenat.vits,taryn,[id number] Tablet 1 tab PO DAILY RF: 0 albuterol sulfate [Ventolin HFA] 90 mcg/actuation HFA aerosol inhaler 2 puff INHALATION Q4H PRN (Reason: Congestion) RF: 0 epinephrine [EpiPen] 0.3 mg/0.3 mL auto-injector 0.3 mg IM ONCE PRN (Reason: Allergic Reaction) RF: 0 valacyclovir [Valtrex] 1 gram tablet 2,000 mg PO BID RF: 0 Referrals: Miscellaneous,DoctorMD [Primary Care Provider] -
[2021-09-08 20:20] LABS: Alanine Aminotransferase 26 IU/L (<35); Albumin 4.6 g/dL (3.5-5.0); Albumin Globulin Ratio 1.5 (1.0-2.8); Alkaline Phosphatase 79 U/L (38-126); Aspartate Aminotransferase 36 IU/L (14-36); BUN Creatinine Ratio 12.9 (6-22); Bilirubin Total 0.6 mg/dL (0.2-1.3); Blood Urea Nitrogen 9 mg/dL (7-17); Calcium 10.4 mg/dL (8.4-10.2); Carbon Dioxide 27 mmol/L (22-32); Chloride 105 mmol/L (98-107); Estimated Glomerular Filt Rate > 60.0 mL/min (>60); Globulin 3.1 g/dL (1.7-4.1); Glucose 99 mg/dL (70-100); HEMOLYSIS < 15 (0-50); Potassium 3.8 mmol/L (3.4-5.1); Sodium 142 mmol/L (137-145); Total Protein 7.7 g/dL (6.3-8.2)
[2021-09-08] MEDS: KETOROLAC 30 MG/ML VIAL 15 MG IV (20:34)
[2021-09-08] MEDS: ONDANSETRON 4 MG/2 ML INJ IV (20:34)
[2021-09-08 20:37] LABS: HCG Quantitative /Beta subunit 2849.8 mIU/mL
== END 2021-09-08 23:55 | disposition home or self-care (01) ==
PROVIDERS: Emergency Provider Emergency Medicine; Referring Provider Obstetrics & Gynecology
DX: O03.9 Complete or unspecified spontaneous abortion without complication (principal); R11.0 Nausea
CPT/HCPCS: 36415; 76801; 76830; 76856; 80053; 84702; 85025; 86850; 86900; 86901; 96361; 96374; 96375; 99284; J1885; J2405

== ENCOUNTER → 2021-11-23 13:30 | Outpatient (CLI) | payer BC, SELFPAY ==
[2021-11-23 14:32] LABS: HCG Quantitative /Beta subunit 38.2 mIU/mL
== END ==
PROVIDERS: Referring Provider Obstetrics & Gynecology; Visit Provider Obstetrics & Gynecology
DX: N91.2 Amenorrhea, unspecified (principal)
CPT/HCPCS: 36415; 84702

== ENCOUNTER → 2021-11-25 08:06 | Outpatient (CLI) | payer BC, SELFPAY ==
[2021-11-25 10:28] LABS: HCG Quantitative /Beta subunit 99.6 mIU/mL
== END ==
PROVIDERS: Referring Provider Obstetrics & Gynecology; Visit Provider Obstetrics & Gynecology
DX: N91.2 Amenorrhea, unspecified (principal)
CPT/HCPCS: 36415; 84702

== ENCOUNTER → 2022-03-06 16:48 | Outpatient (CLI) | payer BC, SELFPAY ==
[2022-03-06 17:17] LABS: Add Manual Diff / Slide Review NO; Basophils Absolute Auto 100 /uL (0-100); Basophils Percent Auto 0.8 % (0-2); Eosinophils Absolute Auto 200 /uL (0-450); Eosinophils Percent Auto 1.7 % (2-4); Hematocrit 34.5 % (36-46); Hemoglobin 11.8 g/dL (12.0-16.0); Lymphocytes Absolute Auto 1400 /uL (1100-4500); Lymphocytes Percent Auto 15.2 % (25-40); Mean Corpuscular HGB Conc 34.1 % (30-36); Monocytes Absolute Auto 500 /uL (0-900); Monocytes Percent Auto 5.5 % (3-14); Neutrophils Absolute Auto 7000 /uL (1500-7000); Neutrophils Percent Auto 76.8 % (50-75); Platelet Count 214 X10^3/uL (150-400); Red Blood Cell Count 4.36 X10^6/uL (4.0-5.2); Red Cell Distribution Width 14.8 % (11.6-14.8); White Blood Cell Count 9.1 X10^3/uL (4.5-11.0)
[2022-03-06 17:56] LABS: Appearance Urine UA CLEAR; Bilirubin Urine UA NEGATIVE (NEGATIVE); Color Urine UA YELLOW; Glucose Urine UA NEGATIVE (Negative); Ketones Urine UA NEGATIVE (NEGATIVE); Leukocyte Esterase Urine UA TRACE (NEGATIVE); Nitrite Urine UA NEGATIVE (Negative); Occult Blood Urine UA NEGATIVE (Negative); Protein Urine UA NEGATIVE (Negative); Specific Gravity Urine UA >=1.030 (1.000-1.035); Urobilinogen Urine UA 0.2 E.U./dL (0.2)
[2022-03-06 19:34] LABS: Bacteria Urine None Seen; RBC Urine None Seen (0-5/HPF); Squamous Epithelial Cell Urine 1-5 /HPF (0-5/HPF); Uric Acid Crystals Urine Moderate; WBC Urine 1-5/HPF (0-5/HPF)
[2022-03-07 20:35] LABS: Hepatitis B Surface Antigen NEGATIVE s/c (NEGATIVE); Rubella Antibody IgG 19.4 IU/mL (>15)
[2022-03-07 20:57] LABS: HIV 1 & 2 Ab/Ag 4th Gen Combo NEGATIVE (NEGATIVE); Hep C Virus Ab w/Reflex Quant NEGATIVE s/c (NEGATIVE)
[2022-03-08 07:45] LABS: RPR Screen Non Reactive (Non Reactive); Varicella IgG Antibody <135 index (Immune >165)
[2022-03-14 02:21] LABS: AFP, Serum 40.7 ng/mL (.); Calc Gestational Age Ultrasound (.); Estriol, Free 3.16 ng/mL (.); Inhibin A, Dimeric 129.68 pg/mL (.); Inhibin A, MoM 1.08 (.); Maternal Ethnicity Caucasian (.); Maternal Weight 230 lbs (.); Number of Fetuses No (.); OSBR Risk 1 IN 7603 (.); Results Report (.); Test Results *Screen Negative* (.); hCG, MoM 1.02 (.); hCG, Serum 23146 mIU/mL (.)
== END ==
PROVIDERS: Referring Provider Obstetrics & Gynecology; Visit Provider Obstetrics & Gynecology
DX: Z34.82 Encounter for supervision of other normal pregnancy, second trimester; Z3A.18 18 weeks gestation of pregnancy
CPT/HCPCS: 36415; 80055; 81003; 81015; 82105; 82677; 84702; 86336; 86787; 86803; 86850; 86900; 86901; 87086; 87389

== ENCOUNTER 2022-03-26 20:30 | Outpatient (CLI) | payer BC, SELFPAY ==
[2022-03-26 21:37] LABS: Appearance Urine UA CLEAR; Bilirubin Urine UA NEGATIVE (NEGATIVE); Color Urine UA YELLOW; Glucose Urine UA TRACE g/dL (Negative); Ketones Urine UA NEGATIVE (NEGATIVE); Leukocyte Esterase Urine UA 1+ (NEGATIVE); Nitrite Urine UA NEGATIVE (Negative); Occult Blood Urine UA NEGATIVE (Negative); Protein Urine UA NEGATIVE (Negative); Specific Gravity Urine UA 1.025 (1.000-1.035); Urobilinogen Urine UA 0.2 E.U./dL (0.2)
[2022-03-26] MEDS: CALCIUM CARBONATE 500 MG TAB 1000 MG PO (21:44)
[2022-03-26] MEDS: FAMOTIDINE 20 MG TABLET PO (21:56)
[2022-03-26 21:57] LABS: pH Urine UA 5.5 (4.5-8.0)
[2022-03-26 22:00] LABS: Bacteria Urine Few (2-10); Culture Indicated Urine Specimen Cultured; RBC Urine 0-1/HPF (0-5/HPF); Squamous Epithelial Cell Urine 1-5 /HPF (0-5/HPF); Transitional Epi Cells Urine 0-1/HPF (0-5/HPF); WBC Urine 5-10/HPF (0-5/HPF)
--- NOTE | 2022-03-27 17:28 | P.TNLD_ITS ---
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 She was sent to the emergency room, but presents to the center reporting epigastric burning pain in the setting of a history of severe GERD. Her chest pain and trouble breathing were not reported on presentation to the center. She reports decreased movement. No BACK, visual changes, fevers/chills, vaginal bleeding, contractions. Does reports a sensation of suprapubic warmth. Vital Signs Vital Signs: 126/67, HR 83, T 36.1C, O2 sat 98% on RA [facility] Medical History Abnormal Pap smear of cervix (~2013) Allergies (~1995) Anal fissure Anemia (~2019) Ankle pain (~2012) Anxiety Asthma (~1995) Depression Eczema (~2003) GERD (gastroesophageal reflux disease) (~2017) HSV-1 (herpes simplex virus 1) infection Insomnia Migraine headache (~2003) Sinusitis Surgical History Anesthesia History of section (~11/06/20) History of colonoscopy History of elective [place] teeth extracted Family History Mother Psychiatric care Asthma Bipolar disorder Mental health problem Father Arthritis Hypertension History of heart disease Brother Drug abuse Bipolar disorder Mental health problem Sister Asthma Bipolar disorder Grandfather Myocardial infarction Grandfather Myocardial infarction History of heart disease Hypertension Grandmother Bipolar disorder Dementia Stroke Mental health problem Grandmother Hypertension History of heart disease Hyperlipidemia Stroke Cancer Social History marital status: household members: spouse pets and animals: Yes (Cat) education level: high school occupational status: employed ([employer]) special edi needs: No seatbelt use: always working smoke detector in home: Yes fire extinguisher in home: Yes carbon monox detector in home: Yes firearms in home: Yes firearms unloaded and locked: Yes do you feel safe at home: Yes Smoking Status: Never smoker second hand exposure: No alcohol intake: never substance use type: does not use during the past year weight has: remained stable well-balanced diet: daily or most days daily servings fruits/ve-4 caffeine: Yes (1 daily) Type(s) of exercise: walking and additional (Cardio) frequency: 3-4 times per week Objective Labs Labs: Laboratory Results - last 24 hr 03/26/22 21:10 Urine Color Yellow Urine Appearance Clear Urine pH 5.5 Ur Specific [place] 1.025 Urine Protein Negative Urine Glucose (UA) Trace H Urine Ketones Negative Urine Occult Blood Negative Urine Nitrate Negative Urine Bilirubin Negative Urine Urobilinogen 0.2 Ur Leukocyte Esterase 1+ H Urine RBC 0-1/hpf Urine WBC 5-10/hpf H Ur Squamous Epith Cells 1-5 /hpf Ur Transition Epith Cell 0-1/hpf Urine Bacteria Few (2-10) H Ur Culture Indicated? Specimen cultured Evaluation Evaluation Baseline heart rate: 150 Diagnosis, Plan/Disposition Plan/Disposition Plan: Patient's status reassuring, no contractions. UA sent due to warmth. Other symptoms improved significantly with tums and pepcid. Discharged home with precautions. OB Disposition: home
== END 2022-03-26 22:35 | disposition home or self-care (01) ==
LOC: LABOR 20:54 → OB 03-28 06:43
PROVIDERS: Referring Provider Obstetrics & Gynecology; Visit Provider Obstetrics & Gynecology
DX: O26.892 Other specified pregnancy related conditions, second trimester (principal); R07.9 Chest pain, unspecified; R06.02 Shortness of breath; O36.8120 Decreased fetal movements, second trimester, not applicable or unspecified; Z3A.21 21 weeks gestation of pregnancy
CPT/HCPCS: 59050; 81001; 87086; G0378; A9270; G0379

== ENCOUNTER → 2022-04-02 18:32 | Outpatient (ROUT) | payer BC, SELFPAY ==
[2022-04-02 20:38] LABS: Urine N gonorrhoeae NOT DETECTED
[2022-04-02 20:45] LABS: Urine Chlamydia NOT DETECTED
== END ==
PROVIDERS: Visit Provider Obstetrics & Gynecology
DX: Z34.82 Encounter for supervision of other normal pregnancy, second trimester (principal); Z3A.22 22 weeks gestation of pregnancy
CPT/HCPCS: 87491; 87591

== ENCOUNTER → 2022-04-05 09:39 | Outpatient (CLI) | payer BC, SELFPAY ==
--- NOTE | 2022-04-05 09:40 | DI.US.S_ITS ---
PROCEDURE: US OB >= 14 WEEKS FETUS INDICATIONS: Anatomy scan OUTSIDE/PRIOR DATING DATA: Last menstrual period (LMP): October 30, 2021. LMP-based estimated date of delivery (SHARON): August 06, 2022 First dating scan (date and location): January 01, 2022, Dr. Guzman office Estimated date of delivery (SHARON) from first dating scan: August 03, 2022. TECHNIQUE: Real-time scanning was performed of the fetus, with image documentation and biometric measurements. Endovaginal scanning: Not performed COMPARISON: [facility], US, US OB >= 14 WEEKS FETUS, 03/06/2022, 16:37. FINDINGS: General: A single living intrauterine gestation is present. Presentation: Vertex. Placenta: Placental position is posterior , without previa. Amniotic fluid index: 14.4 cm, normal range is 5-24 cm. heart rate: 153 beats per minute. Maternal cervical canal: 5.0 cm long. Normal lower limit is 2.5 cm. biometrics: Biparietal diameter: 5.6 cm, 23 weeks, 0 days Head circumference: 21.4 cm, 23 weeks, 3 days Abdominal circumference: 18.8 cm, 23 weeks, 4 days Femur length: 4.2 cm, 23 weeks, 6 days Clinically estimated gestational age: 22 weeks, 6 days Composite gestational age from present scan: 23 weeks, 3 days Estimated weight and percentile: 612 g, 79% Anatomic survey: Neuro: Ventricles are non-dilated at less than 10 mm. Cisterna magna is normal at 3-11 mm. Cerebellum is normal in size and morphology. Nuchal skin fold: Normal at less than 6 mm between 14-21 weeks gestational age. Face: Nose and lips, facial profile are normal. Spine: No evidence for spina bifida. Heart: 4-chambered heart is present, with normal ventricular outflow tracts. Diaphragm: Diaphragm is intact. Stomach: Left-sided stomach is present. Kidneys: No hydronephrosis. Normal is less than 5 mm in 2nd trimester, less than 7 mm in 3rd trimester. Cord: 3-vessel cord has orthotopic insertion. Bladder: Normal in size. Extremities: All 4 extremities identified. IMPRESSION: 1. Single live intrauterine gestation in vertex position with a composite gestational age of 23 weeks, 6 days by the current study which concordant with dates by the initial scan. 2. No sonographic anatomic abnormalities. We strive to produce accurate, complete, and clear reports of imaging services. To assist us in improving patient care, this report was composed using standard report templates and voice recognition software. Therefore, it may contain abnormal punctuation, insertions and/or omissions. Occasional wrong-word or sound-alike substitutions may occur. Though we review the report and make efforts to correct it, we do recommend that the report be read carefully in proper context to recognize any text inaccuracies. << anomalies recommendations DELETE FROM FINAL REPORT Measurement variability for biometric dating: +/- 7 days from 14 weeks to 15 weeks 6 days gestation, +/- 10 days from 16 weeks to 21 weeks 6 days gestation, +/- 2 weeks from 22 weeks to 27 weeks 6 days gestation, +/- 3 weeks for 28 weeks gestation or later. weight reference: 4500 g or EFW >90/95% is considered macrosomia or large for gestational age. EFW <10% is small for gestational age. EFW 5% or less is considered intra-uterine growth restriction. Dictated by: Tanika Tariq M.D. on 04/05/2022 at 15:07 Approved by: Tanika aTriq M.D. on 04/05/2022 at 15:11
== END ==
PROVIDERS: Referring Provider Obstetrics & Gynecology; Visit Provider Obstetrics & Gynecology
DX: Z34.82 Encounter for supervision of other normal pregnancy, second trimester (principal); Z3A.23 23 weeks gestation of pregnancy
CPT/HCPCS: 76811

== ENCOUNTER → 2022-05-03 13:48 | Outpatient (CLI) | payer BC, SELFPAY ==
[2022-05-03 15:38] LABS: Hematocrit 33.4 % (36-46); Hemoglobin 11.1 g/dL (12.0-16.0)
[2022-05-03 16:57] LABS: GTT (PREG) 1 Hour PP 50gm Dose 135 mg/dL (76-139)
== END ==
PROVIDERS: Referring Provider Obstetrics & Gynecology; Visit Provider Obstetrics & Gynecology
DX: Z34.82 Encounter for supervision of other normal pregnancy, second trimester (principal); Z3A.26 26 weeks gestation of pregnancy
CPT/HCPCS: 36415; 82950; 85014; 85018

== ENCOUNTER → 2022-06-21 14:31 | Outpatient (CLI) | payer BC, SELFPAY ==
[2022-06-22 05:42] LABS: Candida species Negative (Negative); Gardnerella vaginalis Negative (Negative); Trichomoas vaginalis Negative (Negative)
== END ==
PROVIDERS: Visit Provider Physician Assistant Medical
DX: Z34.80 Encounter for supervision of other normal pregnancy, unspecified trimester (principal); N89.8 Other specified noninflammatory disorders of vagina; Z3A.33 33 weeks gestation of pregnancy
CPT/HCPCS: 87086; 87480; 87510; 87660

== ENCOUNTER 2022-06-23 23:13 | Outpatient (CLI) | payer BC, SELFPAY ==
[2022-06-23 23:31] LABS: Appearance Urine UA CLEAR; Bilirubin Urine UA NEGATIVE (NEGATIVE); Color Urine UA YELLOW; Glucose Urine UA NEGATIVE (Negative); Ketones Urine UA TRACE (NEGATIVE); Leukocyte Esterase Urine UA NEGATIVE (NEGATIVE); Nitrite Urine UA NEGATIVE (Negative); Occult Blood Urine UA NEGATIVE (Negative); Protein Urine UA TRACE (Negative); Specific Gravity Urine UA 1.025 (1.000-1.035); Urobilinogen Urine UA 0.2 E.U./dL (0.2)
[2022-06-23 23:51] LABS: Bacteria Urine Moderate (10-30); Culture Indicated Urine Cult Not Indicated; RBC Urine None Seen (0-5/HPF); Squamous Epithelial Cell Urine 10-30 /HPF (0-5/HPF); WBC Urine 0-1/HPF (0-5/HPF)
--- NOTE | 2022-06-24 01:06 | P.TNLD_ITS ---
Visit Information Visit Information Date of evaluation: 06/24/22 Primary OB Provider: Valentina Guzman On-call OB Provider: Heidi Granados Reason for Evaluation: Yes rule out labor Comments/Additional reasons for admission: 31 yo brought in for evaluaiton to r/o labor. She reports passing a golf ball size mucousy substance yesterday consistent with mucus plug. Also reported [place] contractions and some upper abdominal cramping, but uncomfortable with them for the past few hours. Feeling good movement. No leakage of fluid or vaginal bleeding. On arrival she reports discomfort improved now. Now she reports was overall only feeling some twinges today at the top of her abdomen but sometimes tightening wrapping around her abdomen. Vital Signs Vital Signs: Temp 96.7 Pulse 111, BP 120/64 PFSH Medical History Abnormal Pap smear of cervix (~2013) Allergies (~1995) Anal fissure Anemia (~2019) Ankle pain (~2012) Anxiety Asthma (~1995) Depression Eczema (~2003) GERD (gastroesophageal reflux disease) (~2017) HSV-1 (herpes simplex virus 1) infection Insomnia Migraine headache (~2003) Sinusitis Surgical History Anesthesia History of section (~11/06/20) History of colonoscopy History of elective [place] teeth extracted Family History Mother Psychiatric care Asthma Bipolar disorder Mental health problem Father Arthritis Hypertension History of heart disease Brother Drug abuse Bipolar disorder Mental health problem Sister Asthma Bipolar disorder Grandfather Myocardial infarction Grandfather Myocardial infarction History of heart disease Hypertension Grandmother Bipolar disorder Dementia Stroke Mental health problem Grandmother Hypertension History of heart disease Hyperlipidemia Stroke Cancer Social History marital status: household members: spouse pets and animals: Yes (Cat) education level: high school occupational status: employed special edi needs: No seatbelt use: always working smoke detector in home: Yes fire extinguisher in home: Yes carbon monox detector in home: Yes firearms in home: Yes firearms unloaded and locked: Yes do you feel safe at home: Yes Smoking Status: Never smoker second hand exposure: No alcohol intake: never substance use type: does not use during the past year weight has: remained stable well-balanced diet: daily or most days daily servings fruits/ve-4 caffeine: Yes (1 daily) Type(s) of exercise: walking and additional frequency: 3-4 times per week Objective Labs Labs: Laboratory Results - last 24 hr 06/23/22 23:26 Urine Color Yellow Urine Appearance Clear Urine pH 6.0 Ur Specific [place] 1.025 Urine Protein Trace H Urine Glucose (UA) Negative Urine Ketones Trace H Urine Occult Blood Negative Urine Nitrate Negative Urine Bilirubin Negative Urine Urobilinogen 0.2 Ur Leukocyte Esterase Negative Urine RBC None seen Urine WBC 0-1/hpf Ur Squamous Epith Cells 10-30 /hpf H D Urine Bacteria Moderate (10-30) H Ur Culture Indicated? Cult not indicated Micro UA Comment * Evaluation Evaluation Baseline heart rate: 140 Variability: Moderate (11-25) monitor accelerations: Present Monitor Decelerations: Absent Category of Tracing: Reactive Status: Category l Cervical dilation (cm): 0 Cervical effacement (%): 0 station: -4 Comments: On initial digital exam, unclear exam. soft bulging tissue in from the cervix, ? bulging membranes through cervix, approximately 4 cm with but near or base. Speculum exam performed and smooth-walled vaginal cyst or vaginal hernia noted from left side vagina. Repeat digital exam then performed and this cyst was pushed to the side digitally, cervix more posterior behind it. Cervix: external os ftp /long. Lower uterine segment does feel mildly full. On toco: one low grade ctx over 1 hour Diagnosis, Plan/Disposition Plan/Disposition Plan: 31 yo @ [id number], history of prior for arrest of descent in 2nd stage. No signs of labor at this time. urine shows trace ketones and was concentrated. Advised increased water intake. Discussed if frequent cramping recurs, try resting of her feet, and hydrate if has not. Call if she does have frequent contractions, 6 per hour or more if not resolving. Reviewed also call for leakage of fluid, vaginal bleeding or decreased movement. OB Disposition: home
== END 2022-06-24 01:10 | disposition home or self-care (01) ==
LOC: LABOR 23:19 → OB 06-25 10:16
PROVIDERS: Referring Provider Obstetrics & Gynecology; Visit Provider Obstetrics & Gynecology
DX: O47.03 False labor before 37 completed weeks of gestation, third trimester (principal); Z3A.33 33 weeks gestation of pregnancy
CPT/HCPCS: 59025; 81001; G0378; G0379

== ENCOUNTER 2022-06-28 07:35 | Outpatient (CLI) | payer BC, SELFPAY ==
--- NOTE | 2022-06-28 10:57 | P.TNLD_ITS ---
Visit Information Visit Information Date of evaluation: 06/28/22 Primary OB Provider: Valentina Guzman On-call OB Provider: Deirdre Michele Reason for Evaluation: Yes non-stress test non-stress test reason: decreased movement and other (abdominal cramping, r/o rupture of membranes) Vital Signs Vital Signs: BP 106/64, P 117, T 98.2 COUNTS INCLUDE [facility] BEDS AT [facility] Medical History Abnormal Pap smear of cervix (~2013) Allergies (~1995) Anal fissure Anemia (~2019) Ankle pain (~2012) Anxiety Asthma (~1995) Depression Eczema (~2003) GERD (gastroesophageal reflux disease) (~2017) HSV-1 (herpes simplex virus 1) infection Insomnia Migraine headache (~2003) Sinusitis Surgical History Anesthesia History of section (~11/06/20) History of colonoscopy History of elective [place] teeth extracted Family History Mother Psychiatric care Asthma Bipolar disorder Mental health problem Father Arthritis Hypertension History of heart disease Brother Drug abuse Bipolar disorder Mental health problem Sister Asthma Bipolar disorder Grandfather Myocardial infarction Grandfather Myocardial infarction History of heart disease Hypertension Grandmother Bipolar disorder Dementia Stroke Mental health problem Grandmother Hypertension History of heart disease Hyperlipidemia Stroke Cancer Social History marital status: household members: spouse pets and animals: Yes (Cat) education level: high school occupational status: employed special edi needs: No seatbelt use: always working smoke detector in home: Yes fire extinguisher in home: Yes carbon monox detector in home: Yes firearms in home: Yes firearms unloaded and locked: Yes do you feel safe at home: Yes Smoking Status: Never smoker second hand exposure: No alcohol intake: never substance use type: does not use during the past year weight has: remained stable well-balanced diet: daily or most days daily servings fruits/ve-4 caffeine: Yes (1 daily) Type(s) of exercise: walking and additional frequency: 3-4 times per week Evaluation Evaluation Baseline heart rate: 155 Variability: Moderate (11-25) monitor accelerations: Present Monitor Decelerations: Absent Contraction Frequency (minutes): 0 Status: Category l Non-invasive Membranes Rupture Test: negative Diagnosis, Plan/Disposition Final Diagnosis (1) 33 weeks gestation of : Status: Acute (2) Decreased movement affecting management of in third trimester: Status: Acute (3) False labor before 37 completed weeks of gestation during in third trimester, antepartum: Status: Acute Plan/Disposition Plan: Patient without contractions, amniosure negative, reactive NST. Patient reassured. Keep routine OB appointment. OB Disposition: home
== END 2022-06-28 08:25 | disposition home or self-care (01) ==
LOC: LABOR 07:53 → OB 07-05 07:20
PROVIDERS: Referring Provider Specialist; Visit Provider Specialist
DX: Z03.71 Encounter for suspected problem with amniotic cavity and membrane ruled out (principal); O36.8130 Decreased fetal movements, third trimester, not applicable or unspecified; O47.03 False labor before 37 completed weeks of gestation, third trimester; Z3A.33 33 weeks gestation of pregnancy
CPT/HCPCS: 59025; 84112; G0378; G0379

== ENCOUNTER → 2022-07-13 15:29 | Outpatient (CLI) | payer BC, SELFPAY ==
[2022-07-14 19:48] LABS: Strep Grp B PCR NEG for Grp B Strep
== END ==
PROVIDERS: Visit Provider Obstetrics & Gynecology
DX: Z34.83 Encounter for supervision of other normal pregnancy, third trimester (principal); Z3A.36 36 weeks gestation of pregnancy
CPT/HCPCS: 87653

== ENCOUNTER 2022-07-30 05:41 | Inpatient (IN) | payer BC, OTHER, SELFPAY ==
[2022-07-30 06:43] LABS: Basophils Absolute Auto 100 /uL (0-100); Basophils Percent Auto 0.5 % (0-2); Eosinophils Absolute Auto 100 /uL (0-450); Eosinophils Percent Auto 1.1 % (2-4); Hematocrit 29.8 % (36-46); Hemoglobin 9.7 g/dL (12.0-16.0); Lymphocytes Absolute Auto 1800 /uL (1100-4500); Lymphocytes Percent Auto 16.4 % (25-40); Mean Corpuscular HGB Conc 32.4 % (30-36); Mean Corpuscular Hemoglobin 22.6 PG (26-34); Mean Corpuscular Volume 69.6 fL (80-100); Monocytes Absolute Auto 600 /uL (0-900); Monocytes Percent Auto 5.2 % (3-14); Neutrophils Absolute Auto 8400 /uL (1500-7000); Neutrophils Percent Auto 76.8 % (50-75); Platelet Count 205 X10^3/uL (150-400); Red Blood Cell Count 4.28 X10^6/uL (4.0-5.2); Red Cell Distribution Width 16.3 % (11.6-14.8); White Blood Cell Count 10.9 X10^3/uL (4.5-11.0)
[2022-07-30 06:54] LABS: Add Manual Diff / Slide Review SLIDE REVIEW
[2022-07-30 07:03] LABS: COVID19 -Nasal RAPID Negative (Negative)
[2022-07-30 07:28] LABS: Microcytosis 2+
[2022-07-30 07:29] LABS: Ovalocytes 1+; Polychromasia 1+
--- NOTE | 2022-07-30 07:43 | P.HPOB_ITS ---
OB HPI Date/Time Date of admission: 07/30/22 Date Patient Seen: 07/30/22 Time Patient Seen: 07:43 History of Present Condition Chief complaint: Repeat C Section SHARON Calculator Estimated Delivery Date Method Current WG Current Estimate 08/06/22 LMP (Certain) 39w 0d Other Estimates 08/03/22 Ultrasound #1 39w 3d Estimated Gestational Age (weeks): 39 : 3 Para: 1 Narrative: Patient is a 31-year-old 3 para 1 who presents at 39 weeks gestation for a scheduled repeat section care: good care, initiated at week # (9), number of visits (12) and pounds weight gain (29) Dating criteria OB: LMP confirmed by 1st trimester US Ultrasounds: normal 1st trimester US and normal mid trimester US Obstetrical complications: none Medical complications OB: none (COVID at 25 weeks) Indications Operative indications ( section): previous uterine surgery Preadmission Labs Last OB Lab Results: Blood Type O Positive 03/06/22 16:57 Antibody Screen Negative 03/06/22 16:57 Hematocrit 29.8 % (36-46) L 07/30/22 06:30 Hemoglobin 9.7 g/dL (12.0-16.0) L 07/30/22 06:30 Hepatitis B Surface Antigen Negative s/c (NEGATIVE) 03/06/22 16 :57 Hepatitis C Antibody Negative s/c (NEGATIVE) 03/06/22 16:57 Rubella Antibody 19.4 IU/mL (>15) 03/06/22 16:57 Varicella-Zoster IgG Antibody <135 index (Immune >165) L 16:57 Glucose 1 Hour 135 mg/dL (76-139) 05/03/22 13:54 Group B Streptococcus (PCR) Neg for grp b strep 07/13/22 15:29 -: Chlamydia screen: negative, Gonorrhea screen: negative and Urine: negative -: PAP smear: Normal Genetic Screens: Quad screen: Normal External Labs -: Urine: negative Prior (ies) Past Pregnancies Del. Date GA/Weeks Labor Lgth Wt Sex Route Outcome Anesthesia Place Delv Breastfeed Preg Comp Name 11/06/20 39.6 12 9 lb 5 oz Female live - full t [facility] none Carmella 09/08/21 8 spontaneous other Delivery Date: 11/06/20 Last Updated by: Valentina Guzman MD Prolonged 2nd stage, Cat 2 tracing Delivery Date: 09/08/21 Last Updated by: Leatha Grijalva RJuanN. heavy bleeding Evaluation Evaluation Baseline heart rate: 140 Variability: Moderate (11-25) monitor accelerations: Present Monitor Decelerations: Absent Status: Category l [facility] Medical History Abnormal Pap smear of cervix (~2013) Allergies (~1995) Anal fissure Anemia (~2019) Ankle pain (~2012) Anxiety Asthma (~1995) Depression Eczema (~2003) GERD (gastroesophageal reflux disease) (~2017) HSV-1 (herpes simplex virus 1) infection Insomnia Migraine headache (~2003) Sinusitis Surgical History Anesthesia History of section (~11/06/20) History of colonoscopy History of elective [place] teeth extracted Family History Mother Psychiatric care Asthma Bipolar disorder Mental health problem Father Arthritis Hypertension History of heart disease Brother Drug abuse Bipolar disorder Mental health problem Sister Asthma Bipolar disorder Grandfather Myocardial infarction Grandfather Myocardial infarction History of heart disease Hypertension Grandmother Bipolar disorder Dementia Stroke Mental health problem Grandmother Hypertension History of heart disease Hyperlipidemia Stroke Cancer Social History marital status: household members: spouse pets and animals: Yes (Cat) education level: high school occupational status: employed special edi needs: No seatbelt use: always working smoke detector in home: Yes fire extinguisher in home: Yes carbon monox detector in home: Yes firearms in home: Yes firearms unloaded and locked: Yes do you feel safe at home: Yes Smoking Status: Never smoker second hand exposure: No alcohol intake: never substance use type: does not use during the past year weight has: remained stable well-balanced diet: daily or most days daily servings fruits/ve-4 caffeine: Yes (1 daily) Type(s) of exercise: walking and additional frequency: 3-4 times per week Meds Home Medications and Allergies Home Medications Medication Instructions Recorded Confirmed Type prenat.vits,taryn,wnc-[id number]-ljumf 1 tab PO DAILY 06/13/20 07/24/22 History albuterol sulfate 90 mcg/actuation 2 puff inhalation Q4H PRN 06/14/20 07/24/22 History aerosol inhaler (Ventolin HFA) Congestion epinephrine 0.3 mg/0.3 mL 0.3 mg IM ONCE PRN Allergic 06/14/20 07/24/22 History injection, auto-injector (EpiPen) Reaction valacyclovir 1 gram tablet 2,000 mg PO BID 06/14/20 07/24/22 History (Valtrex) docusate sodium 100 mg capsule 100 mg PO DAILY 12/21/21 07/24/22 History (Colace) Allergies Allergy/AdvReac Type Severity Reaction Status Date / Time alcohol Allergy Unknown RASH FROM Verified 07/24/22 10:40 RUBBING ALCOHOL amoxicillin Allergy Unknown HIVES Verified 07/24/22 10:40 ciprofloxacin Allergy Unknown drops very Verified 07/24/22 10:40 painful, burned eye latex Allergy Unknown HIVES Verified 07/24/22 10:40 sulfamethoxazole Allergy Verified 07/24/22 10:40 [From Bactrim] trimethoprim [From Bactrim] Allergy Verified 07/24/22 10:40 Peanuts Allergy Uncoded 07/24/22 10:40 OB Exam Narrative Exam Narrative: Generally: Patient is sitting up in bed, no acute distress Lungs: Clear to auscultation bilaterally Cardiovascular: Regular rate and rhythm Fundal height: 40 cm new Estimated weight: 9 lb Extremities: Trace edema Objective Labs Result Diagrams: 07/30/22 06:30 Labs: Laboratory Results - last 24 hr 07/30/22 07/30/22 06:30 06:30 WBC 10.9 RBC 4.28 Hgb 9.7 L Hct 29.8 L MCV 69.6 L MCH 22.6 L MCHC 32.4 RDW 16.3 H Plt Count 205 Neut % (Auto) 76.8 H Lymph % (Auto) 16.4 L Bacon % (Auto) 5.2 Eos % (Auto) 1.1 L Baso % (Auto) 0.5 Neut # (Auto) 8400 H Lymph # (Auto) 1800 Bacon # (Auto) 600 Eos # (Auto) 100 Baso # (Auto) 100 RBC Morphology See below Polychromasia 1+ H Microcytosis 2+ H Ovalocytes 1+ H SARS-CoV-2 (PCR) Negative Assessment and Plan Assessment and Plan Assessment and Plan narrative: Assessment: 31-year-old 3 para 1 at 39 weeks gestation with a previous section Plan: Repeat low-transverse section The risks, benefits, and alternatives to the procedure were explained to the patient. The risks including bleeding, infection, injury to the bowel, bladder, or ureters. She understands these risks and agrees to proceed. A full par Q was held and consent form was signed. Time Spent with Patient Total time spent with greater than 50% in coordination of care (as documented) at patient's floor/unit and/or counseling patient:: 15-24 minutes
--- NOTE | 2022-07-30 07:48 | PM.PREOP ---
Pre-operative Note COVID-19 COVID-19 status: Negative Result date/Date tested (Pos, Neg/Pending): 07/30/22 Criteria for continued procedure: Non-surgical alternatives not available or appropriate per current SOC Interval Note History & Physical reviewed/Exam performed by Physician: Yes Changes to H&P: No H&P completed within 30 days and has changed as indicated here:: 07/30/22
[2022-07-30] MEDS: CEFAZOLIN 2 GM/100 ML PREMIX 100 ML IV (07:53)
--- NOTE | 2022-07-30 08:08 | SUR.OPER ---
FHT 146. Cord blood and placenta to OB with OB RN.
[2022-07-30] MEDS: LACTATED RINGERS 1,000 ML 120 ML IV (08:09)
--- NOTE | 2022-07-30 08:15 | SUR.OPER ---
TOB 0814 Live male.
--- NOTE | 2022-07-30 08:55 | P.OP_ITS ---
Operative Date/Time/Diagnoses Date of procedure: 07/30/22 Time of procedure: 08:55 Pre-op diagnosis: Thirty-nine weeks gestation Previous section Post-op diagnosis: same Procedure & Clinicians Procedure: Repeat low-transverse section Same procedure as scheduled: Yes Indications: 39 weeks gestation Previous section Surgeon: Valentina Guzman Click Yes if Unassisted: No Software Configuration Engineer: Chante Davis Reason for Software Configuration Engineer: The assistant hall director was needed for retraction upon entry into the abdomen and uterus. She assisted with fundal pressure in delivery of the . On closure she is assisted with retraction and clipping of suture. She closed the contralateral fascia. Anesthesia Type: Spinal (With Duramorph) Operative Notes Findings: Live male infant in the [facility] presentation Normal uterus, tubes, and ovaries Closure Type: primary Specimen(s): cord blood and placenta Intraoperative meds administered: Duramorph, Ketorolac and Pitocin Applied: Catheter (To continuous drainage) Estimated Blood Loss (mL): 300 Blood products transfused: none Procedure in detail: The patient was taken to the operating room where she was placed in the seated position. Spinal anesthesia with Duramorph was administered. The patient was then placed in the dorsal supine position with a leftward tilt. She was prepped and draped in the usual sterile fashion. A timeout was performed. After spinal analgesia was found to be adequate, a Pfannenstiel skin incision was made through the previous incision and carried through to the underlying layer fascia. The fascia was nicked in the midline, and the incision extended bilaterally with the Baltazar scissors. The superior aspect of the fascial incision was grasped with a [place] clamps, elevated, and the underlying rectus muscles dissected off sharply and bluntly. Attention was then turned to the inferior aspect of this incision which in a similar fashion was grasped with a [place] clamps, elevated, and the underlying rectus muscles dissected off sharply and bluntly. The rectus muscles were in the midline. The peritoneum was identified, grasped between 2 hemostats, and entered sharply with the Metzenbaum scissors. This incision was extended superiorly and inferiorly with good visualization of the bladder. The bladder blade was inserted. The vesicou terine peritoneum was identified, grasped with the pickup, and entered sharply with the Metzenbaum scissors. This incision was extended bilaterally, and the bladder flap was created digitally. The bladder blade was reinserted. The lower uterine segment was incised in a transverse fashion with the scalpel. Upon entering the amniotic sac there was moderate amount of clear amniotic fluid. The infant's head was delivered with vacuum assistance. The nose and mouth were suctioned with bulb suction. The remainder of the body delivered without difficulty. The cord was double clamped and cut after 1 minute. The was handed off to waiting RN and RT. The placenta was delivered by expression. The uterus was cleared of all clots and debris. The uterine incision was repaired with #1 chromic in a running interlocking fashion, and a second layer the same suture was used for an imbricating layer. Hemostasis was achieved. The tubes and ovaries were examined and were found to be normal. The gutters were cleared of all clots and debris. The bladder flap was reapproximated using 2-0 Vicryl in a running fashion. The parietal peritoneum was closed using 2-0 Vicryl in a running fashion. The fascia was reapproximated using 0 Vicryl in a running fashion. The subcutaneous layer was copiously irrigated with warm normal saline. 5 simple interrupted sutures of 3-0 Vicryl were placed to reapproximate the subcutaneous layer. The skin was closed with 4-0 Monocryl in a subcuticular fashion. Steri-Strips were placed. An Aquacell dressing was placed. The uterus was expressed of a small amount of old blood. Sponge, lap, and instrument counts were correct x-2. The patient tolerated the procedure well, and was taken to PACU in stable condition. IV fluids: 1300 cc of crystalloid Complications: none Baby 1: Gender: Male Presentation: vertex Position: Left Occiput Anterior Placental Delivery Description: Expressed Cord Vessel Description: 3 Vessels and Clamped/Cut (After 1 minute) score (1 min): 8 score (5 min): 9 weight: 8 lb 10 oz Post-operative Condition: stable Disposition: PACU Aftercare: routine postop
[2022-07-30 08:59] VITALS: BP 84/51; PULSE 87; RESP 14; TEMP 37.1; O2SAT 97
[2022-07-30 09:04] VITALS: BP 94/59; PULSE 88; RESP 14; O2SAT 98
[2022-07-30 09:09] VITALS: BP 111/57; PULSE 76; RESP 12; O2SAT 97
[2022-07-30 09:13] VITALS: BP 120/57; PULSE 80; RESP 12; TEMP 36.8; O2SAT 98
[2022-07-30 09:18] VITALS: BP 114/65; PULSE 74; RESP 16; O2SAT 99
[2022-07-30] MEDS: LACTATED RINGERS 1,000 ML 100 ML IV (10:41)
[2022-07-30] MEDS: ACETAMINOPHEN 325 MG TABLET 650 MG PO ×2 (13:09→18:31)
[2022-07-30] MEDS: KETOROLAC 30 MG/ML VIAL IV ×2 (15:09→20:59)
[2022-07-31] MEDS: ACETAMINOPHEN 325 MG TABLET 650 MG PO ×3 (00:15→12:24)
[2022-07-31] MEDS: KETOROLAC 30 MG/ML VIAL IV (02:43)
[2022-07-31] MEDS: OXYCODONE IR 5 MG TABLET PO ×2 (03:58→07:56)
[2022-07-31 06:24] LABS: Hematocrit 22.2 % (36-46); Hemoglobin 7.2 g/dL (12.0-16.0)
[2022-07-31] MEDS: ONDANSETRON 4 MG/2 ML INJ IV (07:59)
[2022-07-31] MEDS: PRENATAL VIT,CALC/IRON/FOLIC 1 TABLET 1 TAB PO (09:52)
[2022-07-31] MEDS: IBUPROFEN 600 MG TABLET PO (09:52)
[2022-07-31 15:35] VITALS: BP 114/65; PULSE 74; RESP 16; TEMP 36.8
--- NOTE | 2022-07-31 17:25 | PM.OBDS.1 ---
Discharge Providers Provider Date of admission: 07/30/22 05:41 Discharge Date: 07/31/22 Primary care physician: Doctor Madiha MD Consults: 07/30/22 09:20 Consult to Bulk Clerk Routine Comment: Discharge provider: Valentina Guzman MD Summary Hospital Course Date Patient Seen: 07/31/22 Time Patient Seen: 13:00 Diagnoses: Thirty-nine weeks gestation Previous section Repeat low-transverse section Hospital Course: Patient is a 31-year-old 3 para 2 postop day # 1 status post repeat low-transverse section. The patient presented on July 30, 2022 for a scheduled repeat section at 39 weeks gestation. She underwent this procedure without complication. Her Bravo catheter was removed on the evening of the same day of surgery. Her pain is well controlled with Tylenol on a ibuprofen. No nausea or vomiting. She has voided without the catheter. She is tolerating a diet. She is ambulating without assistance. Peripartum Data Infant Delivery Method: Section Laceration Description: None Episiotomy description: None Procedures: Repeat low-transverse section Spinal anesthesia complications: none Davis 1: Gender: Male Disposition of : home Status at Discharge Cognitive/behavioral status at discharge: oriented Functional status at discharge: independent ambulation Overall status at discharge: patient is progressing back to baseline Time Spent with Patient Time attestation: Total time spent providing and/or coordinating discharge services: Time spent: Less than 30 minutes Objective Labs Result Diagrams: 07/31/22 06:17 Labs: Laboratory Results - last 24 hr 07/31/22 06:17 Hgb 7.2 L Hct 22.2 L Exam Vital Signs (past 8 hours): - 07/31/22 15:35 Temperature 98.2 F Pulse Rate 74 Respiratory Rate 16 Blood Pressure 114/65 Oxygen Delivery Method Room Air Narrative Exam Narrative: Generally: Patient is sitting in chair, no acute distress Lungs: Clear to auscultation bilaterally Cardiovascular: Regular rate and rhythm Fundus: Firm at U Incision: Clean dry and intact with Aquacel dressing Extremities: 1+ edema, 1+ DTRs Discharge Plan Discharge Plan Patient Disposition: Home Provider Discharge Comment: Call with fever, chills, redness or drainage around the incision, or bleeding vaginally more than a pad in an hour Tylenol 650 mg every 6 hours as needed Ibuprofen 600 mg every 6 hours as needed Discharge orders & Medications Prescriptions: New oxycodone 5 mg tablet 5 mg PO Q4H PRN (Reason: pain) Qty: 20 0RF Continued prenat.vits,taryn,[id number] Tablet 1 tab PO DAILY albuterol sulfate [Ventolin HFA] 90 mcg/actuation HFA aerosol inhaler 2 puff INHALATION Q4H PRN (Reason: Congestion) epinephrine [EpiPen] 0.3 mg/0.3 mL auto-injector 0.3 mg IM ONCE PRN (Reason: Allergic Reaction) Rx Instructions: as a single dose docusate sodium [Colace] 100 mg capsule 100 mg PO DAILY Discontinued valacyclovir [Valtrex] 1 gram tablet 2,000 mg PO BID Rx Instructions: Take two tablets at onset of cold sore outbreak, repeat in 12 hours. No Action ondansetron 4 mg tablet,disintegrating 4 mg PO Q6H PRN (Reason: nausea and vomiting) Qty: 20 1RF Follow up/Referrals: Valentina Guzman MD [Physician] - 08/06/22 2:45 pm (6 week check up- 09/11/2022) Diet/Activity/Treatments Diet: Regular Activity: No heavy lifting Skin/Wound/Dressing Care Report to your healthcare provider any signs of infection, such as:: chills, fever, increased pain, unusual drainage and unusual redness Dressing: Do not remove Visit Report/Discharge Packet Instructions: DI for , DI for Depression, DI for and Nipple Soreness, DI for Prescription Opioid Use Stand Alone Forms: Discharge: Care, Discharge: Davis Care Discharge Data Primary Care Provider: Miscellaneous,Doctor
== END 2022-07-31 15:35 | disposition home or self-care (01) | DRG 788 ==
PROVIDERS: Admitting Provider Obstetrics & Gynecology; Referring Provider Obstetrics & Gynecology; Visit Provider Obstetrics & Gynecology
PROC: 10D00Z1 Extraction of Products of Conception, Low, Open Approach (ICD-10-PCS; CPT 59514; principal; 2022-07-30 07:45)
DX: O34.211 Maternal care for low transverse scar from previous cesarean delivery (principal); Z37.0 Single live birth; Z3A.39 39 weeks gestation of pregnancy; Z20.822 Contact with and (suspected) exposure to COVID-19
CPT/HCPCS: 36415; 59050; 59510; 59514; 85014; 85018; 85025; 86850; 86900; 86901; 87635; C9803; A9270; J0690; J1100; J1885; J2274; J2405; J2590

== ENCOUNTER → 2022-08-16 11:02 | Outpatient (CLI) | payer BC, OTHER, SELFPAY ==
[2022-08-16 11:57] LABS: Add Manual Diff / Slide Review NO; Basophils Absolute Auto 100 /uL (0-100); Basophils Percent Auto 0.9 % (0-2); Eosinophils Absolute Auto 300 /uL (0-450); Eosinophils Percent Auto 5.6 % (2-4); Hematocrit 32.2 % (36-46); Hemoglobin 10.1 g/dL (12.0-16.0); Lymphocytes Absolute Auto 1100 /uL (1100-4500); Lymphocytes Percent Auto 18.8 % (25-40); Mean Corpuscular HGB Conc 31.4 % (30-36); Mean Corpuscular Hemoglobin 22.2 PG (26-34); Mean Corpuscular Volume 70.7 fL (80-100); Monocytes Absolute Auto 300 /uL (0-900); Monocytes Percent Auto 5.5 % (3-14); Neutrophils Absolute Auto 4000 /uL (1500-7000); Neutrophils Percent Auto 69.2 % (50-75); Platelet Count 334 X10^3/uL (150-400); Red Blood Cell Count 4.55 X10^6/uL (4.0-5.2); Red Cell Distribution Width 17.2 % (11.6-14.8); White Blood Cell Count 5.8 X10^3/uL (4.5-11.0)
[2022-08-16 12:14] LABS: HEMOLYSIS < 15 (0-50); Iron 44 ug/dL (37-170)
[2022-08-16 12:26] LABS: Percent Iron Saturation 12 % (15-50); Total Iron Binding Capacity 376 ug/dL (265-497); Transferrin 267 mg/dL (206-381)
[2022-08-16 12:45] LABS: Reticulocyte Count, Percent 1.9 % (1.1-2.6)
[2022-08-16 12:49] LABS: Ferritin 23 ng/mL (6-137)
[2022-08-16 13:20] LABS: Vitamin B12 294 pg/mL (239-931)
== END ==
PROVIDERS: Referring Provider Family Medicine; Visit Provider Family Medicine
DX: D64.9 Anemia, unspecified (principal)
CPT/HCPCS: 36415; 82607; 82728; 82746; 83540; 83550; 85025; 85045

== ENCOUNTER → 2023-02-04 14:29 | Outpatient (CLI) | payer BC, OTHER, SELFPAY ==
--- NOTE | 2023-02-04 14:32 | DI.US.S_ITS ---
PROCEDURE: US ABDOMEN LIMITED INDICATIONS: EPIGASTRIC PAIN TECHNIQUE: Real-time scanning was performed of the abdominal and retroperitoneal organs, with image documentation. COMPARISON: None. FINDINGS: Liver: The liver measures 18.5 cm in length and demonstrates increased echogenicity. Gallbladder: The gallbladder wall measures 1.3 mm in diameter. A nonmobile 9 mm gallstone is present within the fundus. No pericholecystic fluid. The patient endorses a sonographic [place] sign. Biliary ducts: Intrahepatic bile ducts are non-dilated. Extrahepatic bile duct caliber measures 4.3 mm. Normal is 6-7 mm or less in diameter, or 10 mm or less post-cholecystectomy. Pancreas: The pancreas is only partially visualized. IMPRESSION: 1. Increased hepatic echogenicity noted likely related to fatty infiltration of the liver but other sources of hepatocellular disease cannot be excluded. 2. Cholelithiasis with positive sonographic [place] sign. No gallbladder wall thickening or pericholecystic fluid to suggest acute cholecystitis. Dictated by: Tanika Tariq M.D. on 02/04/2023 at 15:41 Approved by: Tanika Tariq M.D. on 02/04/2023 at 15:44
== END ==
PROVIDERS: Referring Provider Family Medicine; Visit Provider Family Medicine
DX: R93.2 Abnormal findings on diagnostic imaging of liver and biliary tract (principal); K80.20 Calculus of gallbladder without cholecystitis without obstruction; R10.13 Epigastric pain
CPT/HCPCS: 76705